=== PATIENT | female | born 1985 | race Caucasian/White ===

== ENCOUNTER 2019-04-15 11:06 | Emergency (ER) | payer BC ==
--- NOTE | 2019-04-15 11:16 | EDM.PDOC ---
ED HPI GENERAL MEDICAL PROBLEM - General Stated Complaint: VISION/35WKS Time Seen by Provider: 04/15/19 11:16 Source of Information: Reports: Patient History Limitations: Reports: No Limitations - History of Present Illness INITIAL COMMENTS - FREE TEXT/NARRATIVE: The patient is to her second . She noticed that she had a change in her peripheral vision and saw spots. This is consistent with an aura. She was found to have blood sugar of 74. We did replenish some of her glucose. The patient is 35 weeks along. She's never had gestational diabetes. Patient states that she has been trying to keep herself hydrated. We did give her Tylenol because her discomfort was about a 2 out of 10 and we also gave her Zofran for her nausea. Her symptoms have resolved to some degree. They are improving. Told her to come back here if she needed any further assistance. heart tones were determined. 130. The patient has been feeling the baby move today. Patient is accompanied by her sister and niece. Onset: Today, Gradual Duration: Improving Location: Reports: Head Quality: Reports: Ache Severity: Mild - Related Data Allergies Allergy/AdvReac Type Severity Reaction Status Date / Time No Known Allergies Allergy Verified 04/15/19 11:27 Home Meds: Home Meds Docusate Sodium [Colace] 100 mg PO DAILY 04/15/19 [History] Ferrous Sulfate [Iron] 1 tab PO DAILY 04/15/19 [History] Past Medical History - Past Health History Medical/Surgical History: Denies Medical/Surgical History Social & Family History - Tobacco Use Smoking Status *Q: Never Smoker ED ROS GENERAL - Review of Systems Review Of Systems: ROS reveals no pertinent complaints other than HPI. ED EXAM GENERAL W FULL EYE - Physical Exam Exam: See Below Exam Limited By: No Limitations General Appearance: Alert, Mild Distress Eye Exam: Bilateral Eye: Normal Fundi, Normal Inspection, PERRL With Correction: No Eyelids: Bilateral: Normal Appearance Conjunctiva & Sclera: Bilateral: Normal Appearance Cornea Exam: Bilateral: Normal Appearance Extraocular Movements: Bilateral: Intact Pupils: Normal Accommodation Pupillary Size: Bilateral: 4 mm Pupillary Reaction: Bilateral: Brisk Ears: Normal External Exam Nose: Normal Inspection Respiratory/Chest: No Respiratory Distress, Lungs Clear Cardiovascular: Normal Peripheral Pulses, Regular Rate, Rhythm Course - Vital Signs Last Recorded V/S: Last Vital Signs Temp 36.6 C 04/15/19 11:10 Pulse 84 04/15/19 11:10 Resp 18 04/15/19 11:10 BP 124/85 04/15/19 11:10 Pulse Ox 99 04/15/19 11:10 - Orders/Labs/Meds Labs: Laboratory Tests 04/15/19 Range/Units 11:17 POC Glucose 74 (74-106) mg/dL Meds: Medications Discontinued Medications Generic Name Dose Route Start Last Admin Trade Name Padmini PRN Reason Stop Dose Admin Acetaminophen 650 mg 04/15/19 11:29 04/15/19 11:35 Tylenol PO 04/15/19 11:30 650 mg NOW ONE Administration Ondansetron HCl 4 mg 04/15/19 11:30 04/15/19 11:36 Zofran Odt PO 04/15/19 11:31 4 mg ONETIME ONE Administration Departure - Departure Time of Disposition: 11:26 Disposition: Home, Self-Care 01 Condition: Good Clinical Impression: Migraine aura, persistent Qualifiers: Status migrainosus presence: without status migrainosus Intractability: intractable Qualified Code(s): G43.519 - Persistent migraine aura without cerebral infarction, intractable, without status migrainosus - Discharge Information *PRESCRIPTION DRUG MONITORING PROGRAM REVIEWED*: No *COPY OF PRESCRIPTION DRUG MONITORING REPORT IN PATIENT EDWIN: No Instructions: Migraine Headache, [id number] Forms: ED Department Discharge Additional Instructions: Blood sugar was somewhat low. Continue with your hydration efforts. Caffeine may help.
[2019-04-15] MEDS ORDERED: Acetaminophen 325 MG Tab PO ONE (11:29)
[2019-04-15] MEDS ORDERED: Ondansetron 4 MG Tab.DIS PO ONE (11:30)
== END 2019-04-15 11:49 | disposition home or self-care (01) ==
LOC: VM.ED 11:06
DX: O99.353 Diseases of the nervous system complicating pregnancy, third trimester (principal); G43.519 Persistent migraine aura without cerebral infarction, intractable, without status migrainosus; Z79.899 Other long term (current) drug therapy; Z3A.35 35 weeks gestation of pregnancy
CPT/HCPCS: 82962; 99283; A9270-GY